=== PATIENT | male | born 1960 | race Caucasian/White ===

== ENCOUNTER 2025-04-29 17:41 | Emergency (ER) | payer OTHER, SELFPAY ==
--- NOTE | 2025-04-29 17:52 | ED_ITS ---
HPI - Skin/Abscess/Foreign Bdy General Chief complaint: Skin/Abscess/Foreign Body Stated complaint: BE STINGS Time Seen by Provider: 04/29/25 17:52 Source: patient Mode of arrival: ambulatory Limitations: no limitations History of Present Illness HPI narrative: 65 up M presents with redness, hives for 6 days. Started after multiple bee stings. Was working in [place] and there was a yellow jacket hive. Did not t costa any medications follow stings, such as antihistamine. States redness and swelling worse. Sting to R mid back is tender and bothering him. Feels fatigue and feverish. All systems reviewed and negative except as noted above. Related Data Allergies Allergy/AdvReac Type Severity Reaction Status Date / Time No Known Allergies Allergy Verified 04/29/25 17:58 PMFSH Comments At time of signature, agree with nursing past medical, surgical, social and family history. There is no relevant family history pertinent to the presenting complaint. Exam Narrative: GENERAL: This is a well-nourished, well-developed patient, in no apparent distress. HEAD: normocephalic, atraumatic. EYES: PERRL. Sclera clear/white. Vision is grossly intact. EARS: External ears normal NOSE: External nose normal NECK: Neck supple, non-tender without lymphadenopathy, masses or thyromegaly. CARDIOVASCULAR: Regular rate and rhythm without murmurs, gallops, or rubs. RESPIRATORY: Clear to auscultation. Breath sounds equal bilaterally. No wheezes, rales, or rhonchi. SKIN: warm, Dry, intact with good texture and turgor. Erythematous hives to left hip bilateral upper arms and back. Area to right midback is warm, tender on palpation. Approximately 10 x 6 cm diameter, concerning for cellulitis. No fluctuance concerning for abscess. NEURO: awake, alert, and oriented to person, place and time. There were no obvious focal neurologic abnormalities. EXTREMITIES: No joint tenderness, effusion, or edema noted. Course Course Level of Care: Express Care Visit Vital Signs Vital signs: Vital Signs Temperature 36.4 C 04/29/25 17:56 Pulse Rate 75 04/29/25 17:56 Respiratory Rate 16 04/29/25 17:56 Blood Pressure 125/84 04/29/25 17:56 Pulse Oximetry 100 08/29/25 17:56 Temperature 36.4 C 08/29/25 17:56 Pulse Rate 75 04/29/25 17:56 Respiratory Rate 16 04/29/25 17:56 Blood Pressure 125/84 04/29/25 17:56 Pulse Oximetry 100 04/29/25 17:56 Reviewed MDM - Skin/Abscess/Foreign Bdy MDM Narrative Medical decision making narrative: Will treat erythema to right midback for cellulitis. Prescribing cephalexin. Will prescribe prednisone, recommend daily antihistamine while treating bee stings. Patient agrees with plan of care. Patient is well-appearing, nontoxic. Discharge Plan Discharge Clinical Impression: Bee sting Qualifiers: Encounter type: initial encounter Injury intent: accidental or unintentional Qualified Code(s): T63.441A - Toxic effect of venom of bees, accidental (unintentional), initial encounter Patient Disposition: Home Condition: Stable Instructions: Cellulitis (ED), Insect Bite or Sting (ED) Additional Instructions: Take medications as prescribed. Start prednisone prescription tomorrow morning. Take a daily antihistamine while treating bee stings, such as Zyrtec. See your doctor if not improving. Patient Language: Frisian Prescriptions: New prednisone 20 mg tablet 40 mg PO DAILY 4 Days Qty: 8 0RF cephalexin 500 mg capsule 500 mg PO Q8H 7 Days Qty: 21 0RF Follow-up/Referrals: Letitia,Lyn [Other] Time of Disposition: 18:02
[2025-04-29 17:56] VITALS: BP 125/84; PULSE 75; RESP 16; TEMP 36.4; O2SAT 100
== END 2025-04-29 18:17 | disposition home or self-care (01) ==
PROVIDERS: Emergency Provider Nurse Practitioner Family
DX: T63.461A Toxic effect of venom of wasps, accidental (unintentional), initial encounter (principal); I10 Essential (primary) hypertension; E78.00 Pure hypercholesterolemia, unspecified
CPT/HCPCS: 99203; G0463; J7512